=== PATIENT | female | born 2000 | race African-American/Black ===

== ENCOUNTER 2021-02-08 09:27 | Emergency (ER) | payer OTHER | END 2021-02-08 10:48 | disposition home or self-care (01) | LOC: CSHERS 09:27 | DX: B37.3 Candidiasis of vulva and vagina (principal); N76.0 Acute vaginitis; F17.200 Nicotine dependence, unspecified, uncomplicated | CPT/HCPCS: 99283 ==

== ENCOUNTER 2021-02-19 09:51 | Emergency (ER) | payer OTHER ==
[2021-02-20] MEDS ORDERED: Acetaminophen 500 MG TAB ONE (03:00)
[2021-02-20] MEDS ORDERED: Ketorolac Tromethamine 30 MG/ML VIAL ONE (03:00)
== END 2021-02-19 11:36 | disposition left against medical advice (07) ==
LOC: CSHERS 09:51
DX: Z53.21 Procedure and treatment not carried out due to patient leaving prior to being seen by health care provider (principal)
CPT/HCPCS: J1885

== ENCOUNTER 2021-02-20 02:00 | Emergency (ER) | payer OTHER | END 2021-02-20 04:10 | disposition home or self-care (01) | LOC: CSHERS 02:00 | DX: S82.434A Nondisplaced oblique fracture of shaft of right fibula, initial encounter for closed fracture (principal); F17.200 Nicotine dependence, unspecified, uncomplicated; X50.9XXA Other and unspecified overexertion or strenuous movements or postures, initial encounter | CPT/HCPCS: 96372 ==

== ENCOUNTER 2021-05-06 00:36 | Emergency (ER) | payer OTHER ==
[2021-05-06 01:18] LABS: Bilirubin Neg (Negative); Blood, Urine Negative (Negative); Clarity Clear (Clear); Glucose, Urine (Dipstick) Normal (Negative); Ketone, Urine Negative (Negative); Leukocyte Negative (Negative); Nitrite Negative (Negative); Protein, Urine (Dipstick) Negative (Neg-Trace); Specific Gravity, Urine 1.025 (1.002-1.036); Urobilinogen Normal mg/dL (Less than 2)
[2021-05-06 01:22] LABS: Pregnancy Test - Urine (BHCG) POSITIVE (Negative); Pregu Control Background? CLEAR/WHITE (CLR/WHITE); Pregu Control Bar Appear? YES (CONTROL BAR); Specific Gravity 1.025 (1.002-1.036)
== END 2021-05-06 01:40 | disposition home or self-care (01) ==
LOC: CSHERS 00:36
DX: Z32.01 Encounter for pregnancy test, result positive (principal)
CPT/HCPCS: 81003; 81025; 99284

== ENCOUNTER 2021-07-03 12:17 | Emergency (ER) | payer OTHER ==
[2021-07-03] MEDS ORDERED: Acetaminophen 500 MG TAB ONE (13:30)
[2021-07-03 13:42] LABS: Bilirubin Neg (Negative); Blood, Urine Negative (Negative); Clarity Clear (Clear); Glucose, Urine (Dipstick) Normal (Negative); Ketone, Urine Negative (Negative); Leukocyte 25 (Negative); Nitrite Negative (Negative); Protein, Urine (Dipstick) 15 mg/dl (Neg-Trace)
[2021-07-03 13:50] LABS: Bacteria/HPF Rare-Few HPF (None Seen); RBC/HPF 0-3 HPF (0-3); Squamous Epithelial 0-3 HPF (0-3)
[2021-07-03 23:58] LABS: Chlamydia by PCR Not Detected (NotDetected); GC by PCR Not Detected (NotDetected)
== END 2021-07-03 15:03 | disposition home or self-care (01) ==
LOC: CSHERS 12:17
DX: O23.591 Infection of other part of genital tract in pregnancy, first trimester (principal); B37.3 Candidiasis of vulva and vagina; Z3A.12 12 weeks gestation of pregnancy
CPT/HCPCS: 81003; 81015; 87480; 87491; 87510; 87591; 87660; 99283

== ENCOUNTER 2021-11-11 23:37 | Inpatient (IN) | payer OTHER ==
[2021-11-11 23:54] VITALS: BMI 25.1
[2021-11-12] MEDS ORDERED: Misoprostol 200 MCG TAB PR PRN (00:16)
[2021-11-12] MEDS ORDERED: hydrALAZINE 20 MG/ML VIAL SLOW IVP PRN (00:16)
[2021-11-12] MEDS ORDERED: Ibuprofen 800 MG TAB PO PRN (00:16)
[2021-11-12] MEDS ORDERED: Carboprost 250 MCG/ML AMP IM PRN (00:16)
[2021-11-12] MEDS ORDERED: Promethazine HCl 25 MG/ML VIAL IM PRN (00:16)
[2021-11-12] MEDS ORDERED: Methylergonovine 0.2 MG/ML VIAL IM PRN (00:16)
[2021-11-12] MEDS ORDERED: Ondansetron PF 4 MG/2 ML Vial IVP PRN (00:16)
[2021-11-12] MEDS ORDERED: Docusate 100 MG CAP PO PRN (00:16)
[2021-11-12] MEDS ORDERED: Acetaminophen 500 MG TAB PO PRN ×2 (00:16→12:54)
[2021-11-12] MEDS ORDERED: Calcium Gluc 4.6 MEQ/10 ML (100 MG/ML) SLOW IVP PRN (00:22)
[2021-11-12] MEDS ORDERED: Lorazepam 2 MG/ML VIAL SLOW IVP PRN (00:22)
[2021-11-12] MEDS ORDERED: NS w/ Oxytocin 30 units 500 ML IV SCH (00:30)
[2021-11-12] MEDS ORDERED: Magnesium Sulfate 4 GM in Sodium Chloride 0.9% 250 ML 250 ML IVPB SCH (00:30)
[2021-11-12] MEDS ORDERED: Magnesium Sulfate 20 GM/WATER 500 ML BAG IVPB SCH (00:30)
[2021-11-12] MEDS: Betamet Acet/Betamet Na Ph 30 MG/5 ML VIAL IM SCH (00:40)
[2021-11-12] MEDS ORDERED: Lidocaine 1% (PF) 30 ML VIAL SC PRN (00:51)
[2021-11-12] MEDS ORDERED: Penicillin G Potassium 5 MILL.UNITS in Sodium Chloride 0.9% 100 ML IVPB SCH (01:00)
[2021-11-12] MEDS ORDERED: NIFEdipine XL 30 MG TAB PO SCH (01:00)
[2021-11-12] MEDS: NIFEdipine 10 MG CAP PO SCH ×6 (01:07→19:37)
[2021-11-12 01:12] LABS: Hemoglobin 10.7 g/dL (12.0-15.5); Mean Corpuscular HGB CONC 34.5 g/dL (32.0-36.0); Mean Corpuscular Hemoglobin 29.4 pg (27.0-33.0); Mean Corpuscular Volume 85.2 fl (81.6-98.3); Platelet Count 225 10x3/uL (150-450); RBC Distribution Width 11.9 % (11.5-14.5); Red Blood Cell (RBC) Count 3.64 10x6/uL (3.90-5.03); White Blood Cell (WBC) Count 6.3 10x3/uL (3.5-10.5)
[2021-11-12 01:30] LABS: Fetal Membranes Rupture No Membranes Rupture (No Rupture)
[2021-11-12 01:39] LABS: Glucose 89 mg/dL (70-105)
[2021-11-12 01:48] LABS: HIV (1/2) Antibody/Antigen Non-Reactive (NonReactive); HIV 1/2 INDEX 0.09 S/CO (<1.00); Hep B Surf Ag Non-Reactive S/CO (NonReactive)
[2021-11-12 01:50] LABS: SARS-CoV-2 NAA Rapid Test Not Detected (NotDetected)
[2021-11-12 02:08] LABS: Syphilis Antibody Nonreactive (Nonreactive); Syphilis Antibody Index 0.03 S/CO (<1.00 Non-Reactive)
[2021-11-12] MEDS: Penicillin G 2.5 MILL.units 2.5 MILL.UNITS in Premix Bag 1 BAG IVPB SCH ×5 (04:56→23:12)
[2021-11-12 09:28] LABS: Bilirubin Neg (Negative); Blood, Urine Negative (Negative); Clarity Clear (Clear); Glucose, Urine (Dipstick) Normal (Negative); Ketone, Urine 15 mg/dL (Negative); Leukocyte Negative (Negative); Nitrite Negative (Negative); Protein, Urine (Dipstick) Negative (Neg-Trace); Specific Gravity, Urine 1.015 (1.002-1.036); Urobilinogen Normal mg/dL (Less than 2)
[2021-11-12 09:35] LABS: Bacteria/HPF None Seen HPF (None Seen); RBC/HPF 0-3 HPF (0-3); Squamous Epithelial 0-3 HPF (0-3); WBC/HPF 0-3 HPF (0-3)
[2021-11-12] MEDS: Lactated Ringer's 1,000 ML IV SCH ×3 (12:57→19:34)
[2021-11-12] MEDS ORDERED: Lactated Ringer's 1,000 ML IV SCH (13:00)
[2021-11-13] MEDS: Betamet Acet/Betamet Na Ph 30 MG/5 ML VIAL IM SCH (01:21)
[2021-11-13] MEDS: Penicillin G 2.5 MILL.units 2.5 MILL.UNITS in Premix Bag 1 BAG IVPB SCH (03:31)
== END 2021-11-13 18:50 | disposition home or self-care (01) | DRG 833 ==
LOC: CSHLD/OP 23:37 → CSHLD 11-12 00:17
PROVIDERS: ADMIT Family Medicine; ATTEND Family Medicine
DX: O60.03 Preterm labor without delivery, third trimester (principal); Z20.822 Contact with and (suspected) exposure to COVID-19; Z3A.32 32 weeks gestation of pregnancy
CPT/HCPCS: 36416; 76805; 81001; 82947; 84112; 85027; 86780; 86850; 86900; 86901; 87340; 87389; 87480; 87510; 87660; 99285; J0702; J2540; J3475; J3490; J7120; U0002

== ENCOUNTER 2021-11-15 12:10 | Day surgery (SDC) | payer OTHER ==
[2021-11-15 12:49] VITALS: BMI 25.1
== END 2021-11-15 12:53 | disposition left against medical advice (07) ==
LOC: CSHLD/OP 12:10
PROVIDERS: ATTEND Family Medicine
DX: O47.9 False labor, unspecified (principal); Z53.21 Procedure and treatment not carried out due to patient leaving prior to being seen by health care provider
CPT/HCPCS: 99282

== ENCOUNTER 2021-11-15 15:04 | Day surgery (SDC) | payer OTHER ==
[2021-11-15 15:33] VITALS: BMI 25.1
[2021-11-15] MEDS ORDERED: hydrALAZINE 20 MG/ML VIAL SLOW IVP PRN (16:47)
[2021-11-15] MEDS ORDERED: Acetaminophen 500 MG TAB PO SCH (17:00)
== END 2021-11-15 18:35 | disposition home or self-care (01) ==
LOC: CSHLD/OP 15:04
PROVIDERS: ATTEND Family Medicine
DX: O26.893 Other specified pregnancy related conditions, third trimester (principal); R10.2 Pelvic and perineal pain; Z3A.32 32 weeks gestation of pregnancy
CPT/HCPCS: 76819; 87480; 87510; 87660; 99285

== ENCOUNTER 2021-12-13 19:27 | Inpatient (IN) | payer OTHER ==
[2021-12-13] MEDS ORDERED: Promethazine HCl 25 MG/ML VIAL IM PRN ×2 (20:33→22:22)
[2021-12-13] MEDS ORDERED: Lidocaine 1% (PF) 30 ML VIAL SC PRN (20:33)
[2021-12-13] MEDS ORDERED: hydrALAZINE 20 MG/ML VIAL SLOW IVP PRN (20:33)
[2021-12-13] MEDS ORDERED: Ondansetron PF 4 MG/2 ML Vial IVP PRN ×2 (20:33→22:22)
[2021-12-13] MEDS ORDERED: Misoprostol 200 MCG TAB PR PRN (20:33)
[2021-12-13] MEDS ORDERED: Ibuprofen 800 MG TAB PO PRN (20:33)
[2021-12-13] MEDS ORDERED: Butorphanol Tartrate 1 MG/ML VIAL SLOW IVP PRN (20:33)
[2021-12-13] MEDS ORDERED: HYDROcodone/Acetaminophen 5/325 mg Tablet PO PRN (20:33)
[2021-12-13] MEDS ORDERED: Lactated Ringer's 1,000 ML IV SCH ×2 (20:45)
[2021-12-13] MEDS ORDERED: Penicillin G Potassium 5 MILL.UNITS in Sodium Chloride 0.9% 100 ML IVPB SCH (20:45)
[2021-12-13] MEDS ORDERED: NS w/ Oxytocin 30 units 500 ML IV SCH (20:45)
[2021-12-13 21:17] LABS: Hemoglobin 10.9 g/dL (12.0-15.5); Mean Corpuscular HGB CONC 33.5 g/dL (32.0-36.0); Mean Corpuscular Hemoglobin 28.5 pg (27.0-33.0); Mean Corpuscular Volume 84.9 fl (81.6-98.3); Mean Platelet Volume 11.4 fl (7.4-10.4); Platelet Count 261 10x3/uL (150-450); RBC Distribution Width 12.9 % (11.5-14.5); Red Blood Cell (RBC) Count 3.83 10x6/uL (3.90-5.03)
[2021-12-13] MEDS ORDERED: Fentanyl 2 mcg/Bup 0.1% Cadd 100 ML ONE (21:48)
[2021-12-13 21:49] LABS: HBSAg Index 0.27 S/CO (0-0.99); Hep B Surf Ag Non-Reactive S/CO (NonReactive); Syphilis Antibody Nonreactive (Nonreactive); Syphilis Antibody Index 0.03 S/CO (<1.00 Non-Reactive)
[2021-12-13] MEDS ORDERED: Moisturizing Cream (Eucerin) 113 GM JAR TOP PRN (22:22)
[2021-12-13] MEDS ORDERED: Acetaminophen 325 MG TAB PO PRN (22:22)
[2021-12-13] MEDS ORDERED: diphenhydrAMINE 50 MG/ML VIAL IVP PRN (22:22)
[2021-12-13] MEDS ORDERED: Lactated Ringer's 500 ML IV PRN (22:22)
[2021-12-13] MEDS ORDERED: Naloxone HCl 0.4 mg/ml Vial IVP PRN ×2 (22:22)
[2021-12-13] MEDS ORDERED: ePHEDrine Sulfate 50 MG/10 ML VIAL SLOW IVP PRN (22:22)
[2021-12-13] MEDS ORDERED: Fentanyl 2 mcg/Bupivacaine 0.1% Cassette 100 ML EPIDURAL SCH (22:30)
[2021-12-13] MEDS ORDERED: Communication Order-Pharmacy FS SCH (22:30)
[2021-12-13 23:28] LABS: SARS-CoV-2 NAA Rapid Test Not Detected (NotDetected)
[2021-12-14] MEDS ORDERED: Penicillin G 2.5 MILL.units 2.5 MILL.UNITS in Premix Bag 1 BAG IVPB SCH (01:00)
[2021-12-14 01:40] VITALS: BMI 27.1
[2021-12-14] MEDS ORDERED: diphenhydrAMINE 25 MG CAP PO PRN (03:16)
[2021-12-14] MEDS ORDERED: Boostrix 0.5 ML (Tdap) VIAL (>/=7 yrs of age) IM ONE (03:16)
[2021-12-14] MEDS ORDERED: Milk Of Magnesia 30 ML UDCUP PO PRN (03:16)
[2021-12-14] MEDS ORDERED: HYDROcodone/Acetaminophen 5/325 mg Tablet PO PRN (03:16)
[2021-12-14] MEDS ORDERED: Lanolin Ointment 7 GM TUBE TOP PRN (03:16)
[2021-12-14] MEDS ORDERED: hydrALAZINE 20 MG/ML VIAL SLOW IVP PRN (03:16)
[2021-12-14] MEDS ORDERED: Bisacodyl 10 MG SUPP PR PRN (03:16)
[2021-12-14] MEDS ORDERED: Benzocaine-Menthol 82.5 ML CAN TOP PRN (03:16)
[2021-12-14] MEDS ORDERED: Ondansetron PF 4 MG/2 ML Vial IVP PRN (03:16)
[2021-12-14] MEDS ORDERED: Promethazine HCl 25 MG/ML VIAL IM PRN (03:16)
[2021-12-14] MEDS ORDERED: NS w/ Oxytocin 30 units 500 ML IV SCH (03:30)
[2021-12-14] MEDS: Ibuprofen 800 MG TAB PO SCH ×4 (05:53→21:06)
[2021-12-14] MEDS: HYDROcodone/Acetaminophen 5/325 mg Tablet PO PRN (08:31)
[2021-12-14] MEDS: Ferrous Sulfate 325 MG TAB PO SCH ×2 (08:32→19:47)
[2021-12-14] MEDS: Docusate 100 MG CAP PO SCH ×2 (08:33→21:06)
[2021-12-14] MEDS: Prenatal Vitamin 1 TAB PO SCH (19:47)
[2021-12-15] MEDS: HYDROcodone/Acetaminophen 5/325 mg Tablet PO PRN (00:18)
[2021-12-15] MEDS: Ibuprofen 800 MG TAB PO SCH (05:01)
[2021-12-15] MEDS: Ferrous Sulfate 325 MG TAB PO SCH (15:54)
[2021-12-15] MEDS: Docusate 100 MG CAP PO SCH (15:54)
[2021-12-15] MEDS: Prenatal Vitamin 1 TAB PO SCH (15:54)
[2021-12-15 15:56] VITALS: BP 120/65; TEMP 98
== END 2021-12-15 13:00 | disposition home or self-care (01) | DRG 807 ==
LOC: CSHERS 19:27 → CSHLD 21:09 → CSHPP 12-14 02:34
PROVIDERS: ADMIT Family Medicine; ATTEND Family Medicine
PROC: 10E0XZZ Delivery of Products of Conception, External Approach (ICD-10-PCS; principal; 2021-12-14)
DX: O60.14X0 Preterm labor third trimester with preterm delivery third trimester, not applicable or unspecified (principal); Z37.0 Single live birth; Z3A.37 37 weeks gestation of pregnancy
CPT/HCPCS: 51702; 85027; 86780; 86850; 86900; 86901; 87340; 99285; J2540; J3490; U0002